=== PATIENT | female | born 1980 | race African-American/Black ===

== ENCOUNTER 2019-07-10 08:52 | Emergency (ER) | payer BC ==
[~2019-07-10] VITALS: Ht 157.5 cm; Wt 143.0 kg
[~2019-07-10 08:52] MED LIST: CYCL10TA2 PO; NAPR-683 PO
[2019-07-10 08:59] VITALS: BP 185/85
[2019-07-10] MEDS ORDERED: AMOX875T PO (09:09)
--- NOTE | 2019-07-10 09:09 | PHYS DOC ---
Past Medical History Past Medical History: No Pertinent History Past Surgical History: , Tubal ligation Additional Past Surgical Histo: 3 C SECTION Alcohol Use: Heavy Drug Use: None Adult General Chief Complaint Chief Complaint: EARACHE/EAR PAIN HPI HPI Patient is a 38 year old female with no significant medical history who presents to the ED today complaining of mild to moderate left ear pain that began yesterday. Patient denies any fever, coughing, congestion. Review of Systems Review of Systems Constitutional: Denies fever or chills [] Eyes: Denies change in visual acuity, redness, or eye pain [] HENT: Reports left ear pain. Denies nasal congestion or sore throat [] Respiratory: Denies cough or shortness of breath [] Cardiovascular: No additional information not addressed in HPI [] GI: Denies abdominal pain, nausea, vomiting, bloody stools or diarrhea [] : Denies dysuria or hematuria [] Musculoskeletal: Denies back pain or joint pain [] Integument: Denies rash or skin lesions [] Neurologic: Denies headache, focal weakness or sensory changes [] All other systems were reviewed and found to be within normal limits, except as documented in this note. Allergies Allergies Allergies Coded Allergies Type Severity Reaction Last Updated Verified No Known Drug Allergies 05/30/19 No Physical Exam Physical Exam Constitutional: Well developed, well nourished, no acute distress, non-toxic appearance. [] HENT: Normocephalic, atraumatic, bilateral external ears normal, oropharynx moist, no oral exudates, nose normal. Left TM is moderately injected Eyes: PERRLA, EOMI, conjunctiva normal, no discharge. [] Neck: Normal range of motion, no tenderness, supple, no stridor. [] Cardiovascular:Heart rate regular rhythm, no murmur [] Lungs & Thorax: Bilateral breath sounds clear to auscultation [] Abdomen: Bowel sounds normal, soft, no tenderness, no masses, no pulsatile masses. [] Skin: Warm, dry, no erythema, no rash. [] Back: No tenderness, no CVA tenderness. [] Extremities: No tenderness, no cyanosis, no clubbing, ROM intact, no edema. [] Neurologic: Alert and oriented X 3, normal motor function, normal sensory function, no focal deficits noted. [] Psychologic: Affect normal, judgement normal, mood normal. [] EKG EKG [] Radiology/Procedures Radiology/Procedures [] Course & Med Decision Making Course & Med Decision Making Pertinent Labs and Imaging studies reviewed. (See chart for details) Patient has left otitis media. Discharged with amoxicillin. Tylenol/Motrin for pain or fever. Follow-up with primary care doctor in one week. Dragon Disclaimer Dragon Disclaimer This electronic medical record was generated, in whole or in part, using a voice recognition dictation system. Departure Departure Impression: Primary Impression: Left otitis media Disposition: HOME, SELF-CARE Condition: STABLE Referrals: NO PCP (PCP) MARTY MARTIN MD Follow-up in 1-2 weeks Patient Instructions: Serous Otitis Media Additional Instructions: You have left ear infection. Ensure you complete your antibiotics. Follow-up with your doctor in 1-2 weeks Scripts Amoxicillin (AMOXICILLIN) 875 Mg Tablet 1 TAB PO BID, #20 TAB Prov: NASIR ROSS APRN 07/10/19 Problem Qualifiers Primary Impression: Left otitis media Otitis media type: other nonsuppurative Chronicity: acute Recurrence: non-recurrent Qualified Codes: H65.192 - Other acute nonsuppurative otitis media, left ear NASIR ROSS [employer]IC [employer]NAESTHETIST Jul 10, 2019 09:09
[2019-07-10] MEDS ORDERED: NAPROXEN 500 MG TABLET PO STA (09:13)
[2019-07-10] MEDS ORDERED: HYDROcodone/APAP 5/325MG 1 TAB TABLET ONE (09:14)
[2019-07-10] MEDS ORDERED: NAPROXEN 500 MG TABLET ONE (09:14)
[2019-07-10] MEDS ORDERED: HYDROcodone/APAP 5/325MG 1 TAB TABLET PO ONE (09:15)
== END 2019-07-10 09:23 | disposition home or self-care (01) ==
LOC: ER 08:52
DX: H65.192 Other acute nonsuppurative otitis media, left ear (principal); F10.20 Alcohol dependence, uncomplicated; Y90.9 Presence of alcohol in blood, level not specified
CPT/HCPCS: 99283

== ENCOUNTER 2019-09-15 09:23 | Emergency (ER) | payer BC ==
[~2019-09-15 09:23] MED LIST changes: +AMOX875T PO
== END 2019-09-15 10:25 | disposition left against medical advice (07) ==
LOC: ER 09:23
DX: R05 Cough (principal); Z53.21 Procedure and treatment not carried out due to patient leaving prior to being seen by health care provider

== ENCOUNTER 2019-10-16 10:24 | Emergency (ER) | payer BC ==
[~2019-10-16] VITALS: Ht 157.5 cm; Wt 142.9 kg
[2019-10-16 11:03] VITALS: BP 160/102
[2019-10-16] MEDS ORDERED: VENTOLIN HFA18 GM INH (11:58)
[2019-10-16] MEDS ORDERED: BENZ100C PO (11:58)
[2019-10-16] MEDS ORDERED: AZIT250T6 PO (11:58)
--- NOTE | 2019-10-16 11:58 | PHYS DOC ---
Past Medical History Past Medical History: Hypertension Past Surgical History: , Tubal ligation Additional Past Surgical Histo: 3 C SECTION Alcohol Use: Heavy Drug Use: None Adult General Chief Complaint Chief Complaint: Congestion HPI HPI Patient is a 38 year old AA who presents to the emergency department with complaints of a productive cough with yellow sputum for the last week and half. She also reports intermittent wheezing, nasal congestion, sore throat, and intermittent shortness of breath. Patient denies any fever, headache, dizziness, nausea, vomiting, diarrhea, abdominal pain, chest pain, palpitations, or ear pain. She states that she has been taking DayQuil and NyQuil and has been using cough drops with little relief of her symptoms. The patient currently rates her discomfort a 6 out of 10 pain scale, she denies any alleviating factors. All other ROS is neg unless otherwise noted in HPI. Review of Systems Review of Systems See Above Allergies Allergies Allergies Coded Allergies Type Severity Reaction Last Updated Verified No Known Drug Allergies 05/30/19 No Physical Exam Physical Exam See Above Constitutional: Well developed, well nourished, no acute distress, non-toxic appearance, obese.. [] HENT: Normocephalic, atraumatic, bilateral external ears normal, bilateral TMs normal, cobblestone appearance of posterior pharynx with Date, oropharynx moist, nose congested Eyes: PERRLA, EOMI, conjunctiva normal, no discharge. [] Neck: Normal range of motion, no tenderness, supple, no stridor. [] Cardiovascular:Heart rate regular rhythm, no murmur [] Lungs & Thorax: Bilateral breath sounds clear to auscultation in upper lobes, scattered rhonchi that clears with cough in posterior bases bilaterally, regular rate, no retractions[] Skin: Warm, dry, no erythema, no rash. [] Back: No tenderness Extremities: No cyanosis, ROM intact Neurologic: Alert and oriented X 3, no focal deficits noted. [] Psychologic: Affect normal, judgement normal, mood normal. [] Current Patient Data Vital Signs Vital Signs Date Time Temp Pulse Resp B/P (MAP) Pulse Ox O2 Delivery O2 Flow Rate FiO2 10/16/19 11:03 99.3 96 18 160/102 (121) 97 Room Air 99.3 EKG EKG [] Radiology/Procedures Radiology/Procedures [] Course & Med Decision Making Course & Med Decision Making Pertinent Labs and Imaging studies reviewed. (See chart for details) [] Dragon Disclaimer Dragon Disclaimer This electronic medical record was generated, in whole or in part, using a voice recognition dictation system. Departure Departure Impression: Primary Impression: Bronchitis Additional Impression: URI (upper respiratory infection) Disposition: 01 HOME, SELF-CARE Condition: STABLE Referrals: NO PCP (PCP) Patient Instructions: Acute Bronchitis, [id number], Upper Respiratory Infection, Adult, [id number] Additional Instructions: Fill prescription(s) and use as directed. Recommend use of a Cool mist humidifier in room at bedtime. Alternate Tylenol or ibuprofen as needed for pain/fever. Increase clear fluids. Avoid airway triggers such as smoke, fragrance, dust, and pollen. May take [id number] cough suppressants as needed. Follow-up with your primary care doctor if symptoms persist, return to the ER if symptoms worsen. Scripts Benzonatate (TESSALON PERLE) 100 Mg Capsule 1 CAP PO TID PRN for COUGH for 7 Days, #21 CAP 0 Refills Prov: VANESSA GALLEGO APRN 10/16/19 Azithromycin (AZITHROMYCIN TABLET) 250 Mg Tablet 1 PKG PO UD for 5 Days, #6 TAB 0 Refills 2 the first day followed by 1 for days 2-5 Prov: VANESSA GALLEGO APRN 10/16/19 Albuterol Sulfate (VENTOLIN HFA INHALER) 18 Gm Hfa.aer.ad 2 PUFF INH Q4HRS PRN for WHEEZING for 30 Days, #1 INHALER 0 Refills Prov: VANESSA GALLEGO APRN 10/16/19 Problem Qualifiers Additional Impression: URI (upper respiratory infection) URI type: unspecified URI Qualified Codes: J06.9 - Acute upper respiratory infection, unspecified VANESSA GALLEGO APRN Oct 16, 2019 11:58
== END 2019-10-16 12:24 | disposition home or self-care (01) ==
LOC: ER 10:24
DX: J40 Bronchitis, not specified as acute or chronic (principal); J06.9 Acute upper respiratory infection, unspecified; I10 Essential (primary) hypertension; F10.20 Alcohol dependence, uncomplicated; Y90.9 Presence of alcohol in blood, level not specified
CPT/HCPCS: 99283

== ENCOUNTER 2019-11-09 09:04 | Emergency (ER) | payer BC ==
[~2019-11-09] VITALS: Ht 157.5 cm; Wt 142.9 kg
[~2019-11-09 09:04] MED LIST changes: +AZIT250T6 PO; +BENZ100C PO; +VENTOLIN HFA18 GM INH
[2019-11-09 09:21] VITALS: BP 147/92
--- NOTE | 2019-11-09 09:25 | PHYS DOC ---
Past Medical History Past Medical History: Hypertension Past Surgical History: , Tubal ligation Additional Past Surgical Histo: 3 C SECTION Smoking: Second-hand Additional Information: Nonsmoker Alcohol Use: Occasionally Drug Use: None Adult General Chief Complaint Chief Complaint: COUGH HPI HPI 39-year-old female presents with 4 day history of URI-type symptoms including cough, generalized body ache, and nasal congestion. Reports history of chronic bronchitis secondary to secondhand smoke exposure. Denies fever or chills. Reports thinks this is similar to her prior episodes of bronchitis. Review of Systems Review of Systems Constitutional: Denies fever or chills Eyes: Denies redness or eye pain HENT: Reports nasal congestion; denies sore throat Respiratory: Reports cough; denies shortness of breath Cardiovascular: Denies chest pain or palpitations GI: Denies abdominal pain, nausea, or vomiting : Denies dysuria or hematuria Musculoskeletal: Denies back pain or joint pain Integument: Denies rash or skin lesions Neurologic: Denies headache, focal weakness or sensory changes Complete systems were reviewed and found to be within normal limits, except as documented in this note. Current Medications Current Medications Current Medications Medications (Trade) Dose Ordered Sig/Guy Start Time Stop Time Status Last Admin Dose Admin Dexamethasone (Decadron) 10 mg 1X ONCE 11/09/19 09:30 11/09/19 09:31 DC 11/09/19 09:40 10 MG Allergies Allergies Allergies Coded Allergies Type Severity Reaction Last Updated Verified No Known Drug Allergies 05/30/19 No Physical Exam Physical Exam Constitutional: Well developed, well nourished, no acute distress, non-toxic appearance HENT: Normocephalic, atraumatic, oropharynx moist, nasal congestion noted, TMs clear Eyes: Conjunctiva normal, no discharge Neck: Normal range of motion, no tenderness, supple Cardiovascular: Heart rate normal, regular rhythm Lungs & Thorax: Bilateral breath sounds equal, no distress, diminished at bases Abdomen: Soft, no tenderness Skin: Warm, dry, no erythema, no rash Extremities: No tenderness, ROM intact, no edema Neurologic: Alert and oriented X 3, no focal deficits noted Psychologic: Affect normal, judgement normal Current Patient Data Vital Signs Vital Signs Date Time Temp Pulse Resp B/P (MAP) Pulse Ox O2 Delivery O2 Flow Rate FiO2 11/09/19 09:21 98.1 91 16 147/92 (110) 100 Room Air 98.1 EKG EKG [] Radiology/Procedures Radiology/Procedures PROCEDURE: CHEST PA & LATERAL Chest, PA and Lateral: Technique: PA and lateral views of the chest were obtained. History: Cough, shortness of breath. Comparison: None. Findings: Mild cardiomegaly.. Mild prominent bilateral perihilar interstitial lung markings. The pleural margins are clear. Impression: Mild prominent bilateral perihilar interstitial lung markings could be mild bronchitis. Electronically signed by: Vishnu Bose MD (11/09/2019 9:43 AM) [facility] Course & Med Decision Making Course & Med Decision Making Pertinent Imaging studies reviewed. (See chart for details) Patient presents with history of present illness and physical exam consistent for acute bronchitis. Symptomatic steroid provided. Chest x-ray without acute process. Patient stable for discharge with outpatient follow-up with PCP. Discussed findings and plan with patient, who acknowledges understanding and agreement. Dragon Disclaimer Dragon Disclaimer This electronic medical record was generated, in whole or in part, using a voice recognition dictation system. Departure Departure Impression: Primary Impression: Bronchitis Disposition: 01 HOME, SELF-CARE Condition: STABLE Referrals: NO PCP (PCP) Patient Instructions: Acute Bronchitis, [id number] Scripts Azithromycin (ZITHROMAX) 250 Mg Tablet 1 PKG PO UD for bronchitis, #6 TAB Take 2 tablets on day 1 and then 1 tablet each day for the next 4 days as directed Prov: PRIYANK AVERY DO 11/09/19 Benzonatate (TESSALON PERLE) 100 Mg Capsule 1 CAP PO TID PRN for COUGH, #21 CAP Prov: PRIYANK AVERY DO 11/09/19 Albuterol Sulfate (Proair Hfa) 8.5 Gm Hfa.aer.ad 2 PUFF IH PRN Q4-6HRS PRN for wheezing, #1 INHALER 0 Refills Prov: PRIYANK AVERY DO 11/09/19 Prednisone (PREDNISONE) 20 Mg Tablet 2 TAB PO DAILY, #8 TAB Start this prescription tomorrow, 11/10/19 Prov: PRIYANK AVERY DO 11/09/19 PRIYANK AVERY DO Nov 09, 2019 09:24
[2019-11-09] MEDS ORDERED: DEXAMETHASONE 4 MG TABLET PO ONE (09:30)
[2019-11-09] MEDS ORDERED: BENZ100C PO (09:36)
[2019-11-09] MEDS ORDERED: PRED20TA PO (09:36)
[2019-11-09] MEDS ORDERED: ALBU2.5V8 IH (09:36)
[2019-11-09] MEDS ORDERED: AZIT250T PO (09:36)
--- NOTE | 2019-11-09 09:46 | RAD ---
Chest, PA and Lateral: Technique: PA and lateral views of the chest were obtained. History: Cough, shortness of breath. Comparison: None. Findings: Mild cardiomegaly.. Mild prominent bilateral perihilar interstitial lung markings. The pleural margins are clear. Impression: Mild prominent bilateral perihilar interstitial lung markings could be mild bronchitis. Electronically signed by: Vishnu Bose MD (11/09/2019 9:43 AM) [facility]
== END 2019-11-09 09:48 | disposition home or self-care (01) ==
LOC: ER 09:04
DX: J42 Unspecified chronic bronchitis (principal); I10 Essential (primary) hypertension; F17.200 Nicotine dependence, unspecified, uncomplicated; Z98.51 Tubal ligation status; Z98.890 Other specified postprocedural states
CPT/HCPCS: 71046; 99284; J8540